=== PATIENT | female | born 1975 | race Hispanic/Latino ===

== ENCOUNTER 2016-08-11 08:34 | Inpatient (IN) | payer OTHER ==
[2016-08-11] VITALS (13 sets, daily range): BP systolic 92–145; BP diastolic 51–85
[~2016-08-11] VITALS: Ht 144.8 cm; Wt 92.1 kg
--- NOTE | 2016-08-11 08:25 | NUR ---
0810 PT TO UNIT VIA WC, C/O CONTR STARTING LAST NITE, STRONGER AT 0730 TODAY, PT UNCOMFORTABLE WITH CONTR. WEIGHED, HEIGHT MEASURED, TO ROOM 253. TO BATHROOM TO OBTAIN URINE SPEC, TO BED. PT PREV CS, SCHEDULED FOR 08/15 RCS. 0825 EFM APPLIED, ABD SOFT. PT REPORTS VAG BLEEDING, RED, NONE SEEN BY NURSE. MOD CONTR PALPATED.
--- NOTE | 2016-08-11 09:00 | NUR ---
DR NICKERSON IN TO SEE PT, PLAN TO DO CS TODAY.
[2016-08-11] MEDS ORDERED: PRE-NATAL PO (09:13)
[2016-08-11] MEDS ORDERED: FERROUS SULF325 M2 PO (09:14)
--- NOTE | 2016-08-11 09:20 | NUR ---
IV START BY Mateo ALCAZAR CRNA, BLOOD FOR LABS TAKEN. PT UNCOMFORTABLE WITH CONTR, FAMILY AT BEDSIDE.
[2016-08-11 09:31] LABS: HEMATOCRIT 38.9 % (37.0-47.0); HEMOGLOBIN 13.2 g/dl (12.0-16.0); IMMATURE GRANULOCYTES 1.5 % (0.0-1.0); MEAN CELL VOLUME 87.6 fL CALC (80.0-100.0); MEAN CORPUSCULAR HGB 29.7 pG CALC (26.0-32.0); MEAN CORPUSCULAR HGB CONC 33.9 g/L CALC (32.0-36.0); NEUT# 12.46 thou/uL (2.00-7.15); RED BLOOD COUNT 4.44 mill/uL (4.20-5.60); RED CELL DISTRI WIDTH 15.5 % (11.5-15.5)
[2016-08-11 09:48] LABS: ALBUMIN 3.4 g/dL (3.2-5.0); ALKALINE PHOSPHATASE 159 u/l (38-126); ANION GAP 14 (6-22 (CALC)); BILIRUBIN, TOTAL 0.6 mg/dL (0.0-1.4); BUN 9 mg/dL (7-17); BUN/CREATININE RATIO 18 (12-20 (CALC)); CARBON DIOXIDE 23 mmol/l (22-30); CHLORIDE 105 mmol/l (95-108); CREATININE 0.5 mg/dL (0.5-1.0); GFR > 60 ML/MIN (>=60 (CALC)); GFR FOR AFR.AMER. > 60 ML/MIN (>=60 (CALC)); GLUCOSE 91 mg/dL (65-105); POTASSIUM 4.2 mmol/l (3.5-5.1); SGOT/AST 47 u/l (14-36); SGPT/ALT 30 u/l (9-52); SODIUM 137 mmol/l (137-146); TOTAL PROTEIN 6.1 g/dL (6.3-8.2)
[2016-08-11 09:57] LABS: URINE BILIRUBIN - DIPSTICK NEGATIVE (NEGATIVE); URINE BLOOD DIPSTICK LARGE (NEGATIVE); URINE COLOR YELLOW; URINE GLUCOSE - DIPSTICK NEGATIVE (NEGATIVE); URINE KETONE NEGATIVE (NEGATIVE); URINE LEUK ESTERASE NEGATIVE (NEGATIVE); URINE NITRITE - DIPSTICK NEGATIVE (Negative); URINE PH 6.5 (4.5-8.0); URINE PROTEIN - DIPSTICK NEGATIVE (NEG-TRACE); URINE SPECIFIC GRAVITY <=1.005; URINE UROBILINOGEN - DIPSTICK 0.2 E.U./dL (0.2)
[2016-08-11 09:59] LABS: URINE CLARITY SLIGHT CLOUDY
[2016-08-11 10:00] LABS: BARBITURATES NEGATIVE (NEGATIVE); COCAINE NEGATIVE (NEGATIVE); METHADONE NEGATIVE (NEGATIVE); OXCYCODONE NEGATIVE (NEGATIVE); TETRAHYDROCANNABIONOL NEGATIVE (NEGATIVE); TRICYLIC ANTIDEPRESSANTS NEGATIVE (NEGATIVE); URINE RBC 25-50 RBC/hpf (0-5)
--- NOTE | 2016-08-11 10:10 | NUR ---
PT PREPARED FOR CS, PREOP MEDS GIVEN, IV INFUSES W/O PROBLEM, ENRIQUEZ IN PLACE DRAINS YELLOW URINE.
--- NOTE | 2016-08-11 10:15 | NUR ---
PT TO CS ROOM WITH OR PERSONNEL VIA WC.
--- NOTE | 2016-08-11 13:25 | NUR ---
PT TO ROOM 209 VIA STRETCHER WITH REC RM PERSONNEL. PT AWAKE, ALERT, TALKING. MOVED TO BED, THOMAS CARE DONE. MOD BLEEDING WITH MOVE, FUNDUS FIRM, DRESSING DRY INTACT. SETTLED IN BED. IV INFUSES W/O PROBLEM, ENRIQUEZ DRAINS WITHOUT PROBLEM.
--- NOTE | 2016-08-11 14:00 | NUR ---
PT HAS BEEN ATTEMPTING BR FEEDING, DENIES PAIN. SIPS TEPID WATER.
--- NOTE | 2016-08-11 15:00 | NUR ---
RESTS FAMILY ERNIE AT BEDSIDE.
--- NOTE | 2016-08-11 16:30 | NUR ---
PT RESTS QUIETLY TALKS WITH VISITORS.
--- NOTE | 2016-08-11 17:00 | NUR ---
HOLDING , DENIES PAIN.
[2016-08-11 17:21] LABS: HEMATOCRIT 34.2 % (37.0-47.0); HEMOGLOBIN 11.2 g/dl (12.0-16.0); MEAN CORPUSCULAR HGB 29.5 pG CALC (26.0-32.0); MEAN CORPUSCULAR HGB CONC 32.7 g/L CALC (32.0-36.0); NEUT# 14.64 thou/uL (2.00-7.15); RED BLOOD COUNT 3.8 mill/uL (4.20-5.60); RED CELL DISTRI WIDTH 15.5 % (11.5-15.5)
--- NOTE | 2016-08-11 18:40 | NUR ---
TAKING FULL LIQUIDS W/O PROBLEM. HAS BEEN USING INCENTIVE SPIROMETER. THOMAS CARE DONE, PT LIFTED WITHOUT PROBLEM.
--- NOTE | 2016-08-11 19:25 | NUR ---
Pt francois draining adequate amount of clear yovana urine.
--- NOTE | 2016-08-11 22:20 | NUR ---
Discussion with pt re: medicating with Toradol prophalactically r/t getting ready to take out francois and get her up. Pt voiced understanding
--- NOTE | 2016-08-11 23:32 | NUR ---
pt francois removed at 2246, say care done by RN, pad and panties applied. Gown changed and pt assisted up to chair x 30 min. Bed linens changed. Pt steady walking to chair and sitting up but did not want to walk in hallway at this time. She refused medication to sleep, but agreed to stool softener. Significant other present in the room holding baby at this time. Pt medicated with Toradol in anticipation of getting up, states pain 2/10 after getting back in bed. Pt agrees to call nurse if she needs to use the bathroom.
--- NOTE | 2016-08-12 01:38 | NUR ---
PT AWAKE, HOLDING BABY. DENIES NEED TO USE BATHROOM AT THIS TIME. DENIES PAIN.
[2016-08-12 04:17] VITALS: BP 122/58
--- NOTE | 2016-08-12 04:34 | NUR ---
Pt assisted up to bathroom, ambulated with steady gait. First void after francois was removed earlier. Pt able to do utilize say bottle for say care, then ambulated back to bed. Medicated with Toradol for c/o pain 06/26.
--- NOTE | 2016-08-12 07:00 | NUR ---
RECEIVED CARE OF PT. SITTING UP IN BED WITH INFANT IN ARMS,POSITIVE BONDING NOTED. ASSESSMENT COMPLETED CHARTED. CLASSICAL INCISION NOTED, DRESSING CLEAN AND DRY. ENCOURAGED TO AMBULATE DURING THE DAY. ENCOURAGED TO COUGH AND DEEP BREATHE. PT REMINDED TO USE INCENTIVE SPIROMETER WHILE AWAKE. PLAN OF CARE REVIEWED. INSTRUCTED TO SOAK AND REMOVE DRESSING IN SHOWER LATER TODAY. INCISION CARE REVIEWED. SIGNIFICANT OTHER AT BEDSIDE. CALL LIGHT WITHIN REACH.
--- NOTE | 2016-08-12 07:20 | NUR ---
PT ALERT AND ORIENTED X3. NO S/S OF RESPIRATORY DEPRESSION OR INCREASED SOMNOLENCE. WILL CONTINUE TO MONITOR.
--- NOTE | 2016-08-12 07:25 | NUR ---
ASSISTED OUT OF BED TO RESTROOM BY SIGNIFICANT OTHER. PT DENIES PAIN MEDICATION. WILL CONTINUE TO MONITOR.
[2016-08-12 07:30] VITALS: BP 111/58
--- NOTE | 2016-08-12 07:45 | NUR ---
DENIES PAIN AT THIS TIME. BREAKFAST TRAY GIVEN.
--- NOTE | 2016-08-12 08:00 | NUR ---
DR NICKERSON IN TO SEE PT, RECEIVED NEW ORDERS.
--- NOTE | 2016-08-12 09:30 | NUR ---
IV DISCONTINUED. CATHETER INTACT. SITE WNL.
--- NOTE | 2016-08-12 13:15 | NUR ---
PT IN SHOWER AT THIS TIME WITH HELP OF SIGNIFICANT OTHER. DRESSING REMOVED BY PT. AREA PAT DRIED AFTER SHOWER. INCISION CLEAN AND DRY.
--- NOTE | 2016-08-12 16:00 | NUR ---
PT VIEWING DISCHARGE VIDEOS AT THIS TIME. NO REQUESTS.
--- NOTE | 2016-08-12 17:12 | NUR ---
PT FINISHED VIEWING DISCHARGE VIDEOS. DENIES PAIN MEDICATION.
[2016-08-12 18:05] VITALS: BP 114/49
--- NOTE | 2016-08-12 18:38 | NUR ---
report given to cayla biggs rn.
--- NOTE | 2016-08-12 18:45 | NUR ---
REPORT RECEIVED FROM PRIOR SHIFT ON PATIENT.
--- NOTE | 2016-08-12 19:30 | NUR ---
ASSESSMENT DONE AND COMPLETED ON PATIENT AT PRESENT MOMENT.
--- NOTE | 2016-08-12 21:30 | NUR ---
Patient resting comfortably in no distress.
--- NOTE | 2016-08-12 23:00 | NUR ---
Patient resting comfortably. Voices no concern.
--- NOTE | 2016-08-13 01:06 | NUR ---
Patient resting comfortably.
--- NOTE | 2016-08-13 02:05 | NUR ---
Patient states pain level of 8 on scale of 1 to 10 to incisional area. Lortab one tablet by mouth given.
--- NOTE | 2016-08-13 02:30 | NUR ---
Pain level of 1 on scale of 1 to 10.
[2016-08-13 04:32] VITALS: BP 118/45
--- NOTE | 2016-08-13 04:38 | NUR ---
Assessment done. vitals done.
--- NOTE | 2016-08-13 05:56 | NUR ---
Pain level of 4 on scale of 1 to 10. Patient medicated with motrin 600mg by mouth for pain to incisional area.
--- NOTE | 2016-08-13 07:14 | NUR ---
ASSESSMENT CHARTED; PATIENT DENIES ANY PAIN OR NEEDS AT THIS TIME. PLAN OF CARE REVIEWED WITH PATIENT AND PATIENT VERBALIZED UNDERSTANDING AND NO QUESTIONS OR CONCERNS AT THIS TIME.
--- NOTE | 2016-08-13 08:46 | NUR ---
GIFT PACKETS AND STAPLE REMOVER KIT GIVEN TO PATIENT. PATIENT DENIES ANY NEEDS AT THIS TIME.
[2016-08-13] MEDS ORDERED: NORCO1 TA2 PO (10:58)
[2016-08-13] MEDS ORDERED: IBUPROFEN600 MG PO (11:00)
--- NOTE | 2016-08-13 11:10 | NUR ---
FINAL DISCHARGE TEACHING AND PAPERS EXPLAINED TO PATIENT AFTER DR. NICKERSON'S VISIT AND DISCHARGE ORDERS RECEIVED. PATIENT VERBALIZED UNDERSTANDING AND NO QUESTIONS OR CONCERNS AT THIS TIME.
--- NOTE | 2016-08-13 12:55 | NUR ---
Discharge instructions given and reviewed. Pt. verbalizes understanding. Discharged in stable condition via Wheelchair to Home accompanied by significant other.
== END 2016-08-13 12:55 | disposition home or self-care (01) | DRG 766 ==
LOC: OBOP 08:34 → OB 08:36 → OBOP 08:59 → OB 09:00
PROC: 10D00Z1 Extraction of Products of Conception, Low, Open Approach (ICD-10-PCS; principal; 2016-08-11)
DX: O34.211 Maternal care for low transverse scar from previous cesarean delivery (principal); N85.8 Other specified noninflammatory disorders of uterus; O75.82 Onset (spontaneous) of labor after 37 completed weeks of gestation but before 39 completed weeks gestation, with delivery by (planned) cesarean section; O99.824 Streptococcus B carrier state complicating childbirth; Z3A.38 38 weeks gestation of pregnancy; Z37.0 Single live birth
CPT/HCPCS: J2270